=== PATIENT | female | born 1945 | race Caucasian/White ===

== ENCOUNTER 2023-10-07 22:53 | Inpatient (IN) | payer MEDICARE ==
[~2023-10-07] VITALS: Ht 177.8 cm; Wt 92.3 kg
[2023-10-07 22:59] VITALS: BP_SYST 124; PULSE 118; RESP 24; TEMP 97.5; O2SAT 94
[2023-10-07 23:24] LABS: ABG O2 SAT% ESTIMATE 95.7 % (94.0-100.0); BLOOD GAS BASE EXCESS 8.5 mmol/L (-3.0-3.0); BLOOD GAS HCO3 30.5 mmol/L (21.0-27.0); BLOOD GAS PCO2 33.7 mmHg (35.0-45.0); BLOOD GAS PH 7.574 (7.350-7.450)
[2023-10-07 23:25] LABS: ALLEN'S TEST POSITIVE (P)
[2023-10-08] VITALS (10 sets, daily range): BP systolic 103–124; PULSE 94–112; RESP 17–20; TEMP 97.2–98.1; O2SAT 91–95
[2023-10-08 00:19] LABS: BASOPHILS % (AUTO) 0.3 % (0.0-2.0); EOSINOPHILS # (AUTO) 0.1 K/uL (0.0-0.4); EOSINOPHILS % (AUTO) 0.9 % (0.0-4.0); HEMATOCRIT 34.3 % (36-48); HEMOGLOBIN 11.6 g/dL (12.0-16.0); LYMPHOCYTES # (AUTO) 1.3 K/uL (1.0-5.5); LYMPHOCYTES % (AUTO) 10.6 % (20.5-51.5); MEAN CORPUSCULAR HEMOGLOBIN 41 pg (27-31); MEAN CORPUSCULAR HGB CONC 34 % (32-36); MEAN CORPUSCULAR VOLUME 120 fL (79.0-98.0); MONOCYTES # (AUTO) 0.5 K/uL (0.0-1.0); MONOCYTES % (AUTO) 4.1 % (1.7-9.3); NEUTROPHILS # (AUTO) 10.2 K/uL (1.8-7.7); NEUTROPHILS % (AUTO) 84.1 % (40.0-70.0); PLATELET COUNT (AUTO) 419 K/uL (130-430); RED BLOOD CELL COUNT(AUTO) 2.86 MIL/uL (4.2-6.2); RED CELL DISTRIBUTION WIDTH 24.2 % (9.0-15.0); WHITE BLOOD COUNT (AUTO) 12.2 K/uL (4.8-10.8)
[2023-10-08 00:41] LABS: ANION GAP 6 (5-15); CALCIUM 7.2 mg/dL (8.4-11.0); CARBON DIOXIDE 35 mmol/L (23-29); CHLORIDE 99 mmol/L (98-107); CREATININE 1.84 mg/dL (0.55-1.30); GLUCOSE 174 mg/dL (74-106); SODIUM SERUM 140 mmol/L (136-145); UREA NITROGEN, BLOOD 43 mg/dL (8-21)
[2023-10-08 01:05] LABS: COVID19 ANTIGEN SOFIA FIA NEGATIVE (NEGATIVE)
[2023-10-08 01:06] LABS: INFLUENZA TYPE A Negative (NEGATIVE); INFLUENZA TYPE B NEGATIVE (NEGATIVE)
[2023-10-08] MEDS ORDERED: cefTRIAXone 1 GM VIAL ONE (01:07)
[2023-10-08] MEDS ORDERED: AZITHROMYCIN 500 MG/VIAL (ZITHROMAX) IV ONE (01:08)
[2023-10-08] MEDS: cefTRIAXone 1 GM in D5W 50 ML IV ONE (01:23)
[2023-10-08] MEDS ORDERED: IPRATROPIUM/ALBUTEROL SULFATE 3 ML AMPUL.NEB (DUONEB) INH PRN (02:15)
[2023-10-08] MEDS: PIPERACILLIN/TAZO 3.375 GM in NS 50 ML IV ONE (02:30)
[2023-10-08] MEDS: AZITHROMYCIN 500 MG in NS 250 ML IV ONE (02:33)
[2023-10-08] MEDS: POTASSIUM CHLORIDE 20 MEQ TABLET.ER PO ONE (02:39)
[2023-10-08] MEDS: MAGNESIUM SULFATE 50 ML IV ONE (03:58)
[2023-10-08] MEDS ORDERED: PIPERACILLIN/TAZO 3.375 GM in NS 50 ML IV SCH ×2 (06:00→12:00)
[2023-10-08] MEDS: PIPERACILLIN/TAZO 3.375 GM in NS 50 ML IV SCH (07:10)
[2023-10-08] MEDS: BUDESONIDE 0.5 MG/2 ML AMPUL.NEB INH ONE (12:10)
[2023-10-08 12:43] LABS: BASOPHILS % (AUTO) 0.3 % (0.0-2.0); EOSINOPHILS # (AUTO) 0.2 K/uL (0.0-0.4); EOSINOPHILS % (AUTO) 1.5 % (0.0-4.0); HEMATOCRIT 35.3 % (36-48); LYMPHOCYTES # (AUTO) 1.3 K/uL (1.0-5.5); LYMPHOCYTES % (AUTO) 11.7 % (20.5-51.5); MEAN CORPUSCULAR HEMOGLOBIN 41 pg (27-31); MEAN CORPUSCULAR HGB CONC 34 % (32-36); MEAN CORPUSCULAR VOLUME 121 fL (79.0-98.0); MONOCYTES # (AUTO) 0.4 K/uL (0.0-1.0); MONOCYTES % (AUTO) 3.6 % (1.7-9.3); NEUTROPHILS # (AUTO) 9.5 K/uL (1.8-7.7); NEUTROPHILS % (AUTO) 82.9 % (40.0-70.0); PLATELET COUNT (AUTO) 404 K/uL (130-430); RED BLOOD CELL COUNT(AUTO) 2.93 MIL/uL (4.2-6.2); RED CELL DISTRIBUTION WIDTH 24.2 % (9.0-15.0); WHITE BLOOD COUNT (AUTO) 11.4 K/uL (4.8-10.8)
[2023-10-08] MEDS ORDERED: ASPI-859 PO (12:46)
[2023-10-08 12:56] LABS: ANION GAP 6 (5-15); CALCIUM 7.9 mg/dL (8.4-11.0); CARBON DIOXIDE 33 mmol/L (23-29); CHLORIDE 100 mmol/L (98-107); CREATININE 1.66 mg/dL (0.55-1.30); GLUCOSE 115 mg/dL (74-106); POTASSIUM 3.4 mmol/L (3.5-5.1); SODIUM SERUM 139 mmol/L (136-145); UREA NITROGEN, BLOOD 39 mg/dL (8-21)
[2023-10-08] MEDS ORDERED: MEGE20TA3 PO (12:56)
[2023-10-08] MEDS ORDERED: FURO-149 PO (12:56)
[2023-10-08] MEDS ORDERED: LIP40 PO (12:56)
[2023-10-08] MEDS ORDERED: [UNRECOGNIZED DRUG - CODE] IH (12:56)
[2023-10-08] MEDS ORDERED: OMEP-268 PO (12:56)
[2023-10-08] MEDS ORDERED: FLUT1BLS10 (12:56)
[2023-10-08 12:58] LABS: PROTHROMBIN TIME 10.3 SECS (9.5-12.5)
[2023-10-08] MEDS ORDERED: IPRATROPIUM/ALBUTEROL SULFATE 3 ML AMPUL.NEB (DUONEB) INH SCH (13:00)
[2023-10-08 13:15] LABS: ALANINE AMINOTRANSFERASE 7 U/L (12-78); ALBUMIN 2.9 g/dL (3.4-4.8); ASPARTATE AMINOTRANSFERASE 22 U/L (10-37); TOTAL BILIRUBIN 1.1 mg/dL (0.0-1.0); TOTAL PROTEIN, SERUM 7.1 g/dL (6.4-8.3)
[2023-10-08] MEDS: METHYLPREDNISOLONE SOD SUCC 40 MG/ML VIAL IVP ONE (13:38)
[2023-10-08] MEDS: FUROSEMIDE 20 MG/2 ML VIAL IVP ONE (13:38)
[2023-10-08] MEDS: ENOXAPARIN SODIUM 30 MG/0.3 ML SYRINGE SUBCUT ONE (13:38)
[2023-10-08] MEDS: IPRATROPIUM/ALBUTEROL SULFATE 3 ML AMPUL.NEB (DUONEB) INH SCH (15:52)
[2023-10-08] MEDS ORDERED: *LOVENOX 1MG/KG Q12H/PHARMACY XX PRN (16:30)
[2023-10-08] MEDS: ENOXAPARIN SODIUM 60 MG/0.6 ML SYRINGE SUBCUT ONE (17:58)
[2023-10-08] MEDS: BUDESONIDE 0.5 MG/2 ML AMPUL.NEB INH SCH (19:48)
[2023-10-08] MEDS: AZITHROMYCIN 500 MG in NS 250 ML IV SCH (20:54)
[2023-10-08] MEDS ORDERED: AZITHROMYCIN 500 MG in NS 250 ML IV SCH (21:00)
[2023-10-09] VITALS (10 sets, daily range): BP systolic 113–129; PULSE 87–99; RESP 16–20; TEMP 97.6–98.6; O2SAT 93–96
[2023-10-09] MEDS ORDERED: ENOXAPARIN SODIUM 30 MG/0.3 ML SYRINGE SUBCUT SCH (09:00)
[2023-10-09] MEDS: METHYLPREDNISOLONE SOD SUCC 40 MG/ML VIAL IVP SCH (09:21)
[2023-10-09] MEDS ORDERED: LOVI100 SUBCUT (13:49)
[2023-10-09] MEDS: ENOXAPARIN SODIUM 100 MG/ML SYRINGE SUBCUT SCH (17:46)
[2023-10-09] MEDS: POTASSIUM CHLORIDE 20 MEQ TABLET.ER PO ONE (17:46)
== END 2023-10-09 20:40 | disposition short-term general hospital (02) | DRG 175 ==
LOC: SED 22:53 → STU 10-08 02:14
PROVIDERS: ADMIT Internal Medicine; ATTEND Internal Medicine
DX: I26.09 Other pulmonary embolism with acute cor pulmonale (principal); J18.9 Pneumonia, unspecified organism; J96.21 Acute and chronic respiratory failure with hypoxia; I82.493 Acute embolism and thrombosis of other specified deep vein of lower extremity, bilateral; J44.1 Chronic obstructive pulmonary disease with (acute) exacerbation; J44.0 Chronic obstructive pulmonary disease with (acute) lower respiratory infection; E66.9 Obesity, unspecified; Z20.822 Contact with and (suspected) exposure to COVID-19; I10 Essential (primary) hypertension; Z68.29 Body mass index [BMI] 29.0-29.9, adult; Z79.899 Other long term (current) drug therapy; Z87.891 Personal history of nicotine dependence; Z99.81 Dependence on supplemental oxygen
CPT/HCPCS: 36415; 36600; 71045; 78579; 78580; 80048; 80053; 82803; 83605; 83735; 83880; 84484; 85025; 85610; 85730; 87040; 92610-GN; 93970; 94640; 94760; 99285; A9539; A9540; G0378; J0456; J0696; J1030; J1650; J1940; J2543; J3475; J7050; J7626